=== PATIENT | female | born 1980 | race Caucasian/White ===

== ENCOUNTER 2018-09-15 13:41 | Emergency (ER) | payer OTHER ==
[2018-09-15 13:59] VITALS: BP 129/81; PULSE 104; RESP 16; TEMP 97.3; O2SAT 100
[2018-09-15] MEDS ORDERED: SODIUM CHLORIDE 0.9% 1000ML 1,000 ML IV ONE (14:07)
[2018-09-15 14:23] LABS: BASOPHILS % (AUTO) 1 % (0-3); EOSINOPHILS % (AUTO) 1 % (0-9); HEMATOCRIT 35 % (35-47); HEMOGLOBIN 11.6 gm/dl (12.0-15.5); LYMPHOCYTES % (AUTO) 18.3 % (10-50); MEAN CORPUSCULAR HEMOGLOBIN 28.9 pg (27.0-32.0); MEAN CORPUSCULAR HGB CONC 33.1 gm/dl (32.0-36.0); MEAN CORPUSCULAR VOLUME 87 fL (81-99); MONOCYTES % (AUTO) 6.6 % (0-12); NEUTROPHILS % (AUTO) 73.7 % (37-80)
[2018-09-15 14:36] LABS: ALBUMIN 2.6 gm/dl (3.4-5.0); ALKALINE PHOSPHATASE 65 IU/L (46-116); ALT 15 IU/L (14-63); AST 14 IU/L (15-37); BILIRUBIN,TOTAL 0.2 mg/dl (0.2-1.0); BLOOD UREA NITROGEN 6 mg/dl (7-18); CALCIUM 8.4 mg/dl (8.5-10.1); CARBON DIOXIDE 29.9 mEq/L (21-32); CHLORIDE 103 mMol/L (98-107); CREATININE 0.54 mg/dl (0.60-1.00); GLUCOSE 92 mg/dl (74-106); POTASSIUM 3.7 mMol/L (3.5-5.1); SODIUM 138 mMol/L (136-145); TOTAL PROTEIN 6.7 gm/dl (6.4-8.2)
[2018-09-15] MEDS ORDERED: ACETAMINOPHEN 500 MG 500 MG TAB PO ONE (14:38)
[2018-09-15 14:40] LABS: ALCOHOL < 0.003 gm/dl (0.000-0.08)
[2018-09-15] MEDS ORDERED: ACETAMINOPHEN 500 MG 500 MG TAB ONE (14:43)
[2018-09-15 16:13] LABS: APPEARANCE,URINE Clear; BILIRUBIN,URINE NEGATIVE (NEGATIVE); COLOR,URINE Yellow; GLUCOSE, URINE (UA) NEGATIVE (NEGATIVE); KETONES,URINE NEGATIVE (NEGATIVE); LEUKOCYTE ESTERASE ,URINE TRACE (NEGATIVE); NITRATE,URINE NEGATIVE (NEGATIVE); OCCULT BLOOD,URINE NEGATIVE (NEG-TRACE); PH,URINE 7.5; UROBILINOGEN,URINE 0.2 (0.2-1.0 EU)
[2018-09-15 16:25] LABS: AMPHETAMINES NEGATIVE (NEGATIVE); BACTERIA NEGATIVE (< 1+); BARBITUATES NEGATIVE (NEGATIVE); BENZODIAZEPINES NEGATIVE (NEGATIVE); CANNABINOL(THC) NEGATIVE (NEGATIVE); COCAINE(COC) NEGATIVE (NEGATIVE); CRYSTALS NEGATIVE (0-3 AVE/HPF); EPITHELIAL CELLS 0-1 (SQUAMOUS); METHADONE NEGATIVE (NEGATIVE); METHAMPHETAMINES NEGATIVE (NEGATIVE); OPIATES(OPI) NEGATIVE (NEGATIVE); OXYCODONE(OXY) NEGATIVE (NEGATIVE); PROPOXYPHENE(PPX) NEGATIVE (NEGATIVE); RBC,URINE NEG (0-3AV/HPF); TRICYCLIC ANTIDEPRESSANTS NEGATIVE (NEGATIVE); WBC,URINE NEG (0-5AV/HPF)
== END 2018-09-15 18:37 | disposition short-term general hospital (02) | DRG 897 ==
LOC: ED 13:41
DX: F15.20 Other stimulant dependence, uncomplicated (principal); Z3A.23 23 weeks gestation of pregnancy; F17.210 Nicotine dependence, cigarettes, uncomplicated
CPT/HCPCS: 36415; 80053; 80305; 80307; 81001; 85025; 86901; 87088; 96365; 96366; 99283; 99284

== ENCOUNTER 2018-12-27 08:35 | Observation (INO) | payer OTHER ==
[2018-09-15 13:59] VITALS: O2SAT 100
[2019-01-06] MEDS ORDERED: MEPIVACAINE HCL 1% MPF 30 ML/VIAL SOL INFIL PRN (18:28)
[2019-01-06] MEDS ORDERED: OXYTOCIN 10000 MU/ML SOL IM PRN (18:28)
[2019-01-06] MEDS ORDERED: METHYLERGONOVINE MALEATE 0.2 MG/ML SOL IM PRN (18:28)
[2019-01-06] MEDS ORDERED: LACTATED RINGERS 1,000 ML IV PRN (18:28)
[2019-01-06] MEDS ORDERED: CARBOPROST 250 MCG/ML SOL IM PRN (18:28)
[2019-01-06] MEDS ORDERED: SODIUM CHLORIDE 0.9% FLUSH 10 ML SOL IV PRN (18:28)
[2019-01-06] MEDS ORDERED: FENTANYL 100MCG/2ML SOL IV PRN (18:28)
[2019-01-06] MEDS ORDERED: SODIUM CHLORIDE 0.9% FLUSH 10 ML SOL IV SCH (18:30)
[2019-01-06 18:56] LABS: BASOPHILS % (AUTO) 0 % (0-3); EOSINOPHILS % (AUTO) 1 % (0-9); HEMATOCRIT 38 % (35-47); HEMOGLOBIN 12.5 gm/dl (12.0-15.5); LYMPHOCYTES % (AUTO) 18.4 % (10-50); MEAN CORPUSCULAR HEMOGLOBIN 28.9 pg (27.0-32.0); MEAN CORPUSCULAR HGB CONC 32.6 gm/dl (32.0-36.0); MEAN CORPUSCULAR VOLUME 89 fL (81-99); MONOCYTES % (AUTO) 5.8 % (0-12); NEUTROPHILS % (AUTO) 74.6 % (37-80)
[2019-01-06 19:52] VITALS: BP 126/90; PULSE 106; RESP 18; TEMP 97.8
[2019-01-06 20:13] LABS: APPEARANCE,URINE Clear; BILIRUBIN,URINE NEGATIVE (NEGATIVE); COLOR,URINE Yellow; GLUCOSE, URINE (UA) NEGATIVE (NEGATIVE); KETONES,URINE NEGATIVE (NEGATIVE); LEUKOCYTE ESTERASE ,URINE 1+ (NEGATIVE); NITRATE,URINE NEGATIVE (NEGATIVE); OCCULT BLOOD,URINE NEGATIVE (NEG-TRACE); UROBILINOGEN,URINE 0.2 (0.2-1.0 EU)
[2019-01-06 20:29] LABS: AMPHETAMINES NEGATIVE (NEGATIVE); BACTERIA TRACE (< 1+); BARBITUATES NEGATIVE (NEGATIVE); BENZODIAZEPINES NEGATIVE (NEGATIVE); CANNABINOL(THC) NEGATIVE (NEGATIVE); COCAINE(COC) NEGATIVE (NEGATIVE); CRYSTALS NEGATIVE (0-3 AVE/HPF); METHADONE NEGATIVE (NEGATIVE); METHAMPHETAMINES NEGATIVE (NEGATIVE); OPIATES(OPI) NEGATIVE (NEGATIVE); OXYCODONE(OXY) NEGATIVE (NEGATIVE); PROPOXYPHENE(PPX) NEGATIVE (NEGATIVE); RBC,URINE NEGATIVE (0-3AV/HPF); TRICYCLIC ANTIDEPRESSANTS NEGATIVE (NEGATIVE)
[2019-01-06 20:33] LABS: ABO O; ANTIBODY SCREEN Negative; RH TYPE Positive
[2019-01-10 13:48] LABS: *HEPATITIS B SURG AG Nonreactive (Nonreactive)
[2019-01-11 06:57] LABS: *HIV 1/2 AB/AG COMBO Nonreactive (Nonreactive)
== END 2019-01-06 20:55 | disposition home or self-care (01) | DRG 392 ==
LOC: OB 01-06 18:13
PROVIDERS: ADMIT Family Medicine; ATTEND Family Medicine
DX: R10.9 Unspecified abdominal pain (principal); Z3A.40 40 weeks gestation of pregnancy; F19.90 Other psychoactive substance use, unspecified, uncomplicated; O09.30 Supervision of pregnancy with insufficient antenatal care, unspecified trimester
CPT/HCPCS: 36415; 59025; 80305; 81001; 85025; 86850; 86900; 86901; 87088

== ENCOUNTER 2019-01-09 19:00 | Observation (INO) | payer OTHER ==
[2019-01-09 19:50] VITALS: BP 126/86; PULSE 81; RESP 12; TEMP 98.5; O2SAT 97
== END 2019-01-09 21:30 | disposition home or self-care (01) | DRG 998 ==
LOC: OB 19:00
PROVIDERS: ADMIT Family Medicine; ATTEND Family Medicine
DX: O09.31 Supervision of pregnancy with insufficient antenatal care, first trimester (principal); O47.1 False labor at or after 37 completed weeks of gestation; Z3A.40 40 weeks gestation of pregnancy; F19.90 Other psychoactive substance use, unspecified, uncomplicated

== ENCOUNTER 2019-01-10 00:43 | Inpatient (IN) | payer OTHER ==
[2019-01-10] MEDS ORDERED: ROPIVACAINE HYDROCHLORIDE 5 MG/ML SOL ONE ×2 (01:15→03:04)
[2019-01-10] MEDS ORDERED: OXYTOCIN 10000 MU/ML SOL ONE (01:15)
[2019-01-10] MEDS ORDERED: AMPICILLIN 1 GM PDS ONE (01:24)
[2019-01-10] MEDS ORDERED: MEPIVACAINE HCL 1% MPF 30 ML/VIAL SOL INFIL PRN ×2 (01:34→01:48)
[2019-01-10] MEDS ORDERED: FENTANYL 100MCG/2ML SOL IV PRN ×2 (01:34→01:48)
[2019-01-10] MEDS ORDERED: LACTATED RINGERS 1,000 ML IV PRN ×2 (01:34→01:48)
[2019-01-10] MEDS ORDERED: CARBOPROST 250 MCG/ML SOL IM PRN ×2 (01:34→01:48)
[2019-01-10] MEDS ORDERED: METHYLERGONOVINE MALEATE 0.2 MG/ML SOL IM PRN ×2 (01:34→01:48)
[2019-01-10] MEDS ORDERED: SODIUM CHLORIDE 0.9% 50 ML 25 ML IV PRN (01:34)
[2019-01-10] MEDS ORDERED: OXYTOCIN 10000 MU/ML SOL IM PRN ×2 (01:34→01:48)
[2019-01-10] MEDS ORDERED: AMPICILLIN 1 GM PDS 2 GM in SODIUM CHLORIDE 0.9% 100 ML 100 ML IV SCH (01:45)
[2019-01-10] MEDS ORDERED: SODIUM CHLORIDE 0.9% FLUSH 10 ML SOL IV PRN (01:48)
[2019-01-10] MEDS: SODIUM CHLORIDE 0.9% FLUSH 10 ML SOL IV PRN ×2 (01:57→08:16)
[2019-01-10] MEDS: LACTATED RINGERS 1,000 ML IV SCH ×2 (03:00→03:10)
[2019-01-10] MEDS ORDERED: FENTANYL 250 MCG/ 5ML SOL ONE (03:03)
[2019-01-10] MEDS ORDERED: LIDOCAINE HCL 2% MPF 10 ML SOL ONE (03:05)
[2019-01-10] MEDS ORDERED: LIDOCAINE 1% W/EPI MPF 30 ML SOL ONE (03:13)
[2019-01-10] MEDS ORDERED: NALBUPHINE HCL 20 MG/ML SOL IV PRN (03:18)
[2019-01-10] MEDS ORDERED: EPHEDRINE SULFATE 50 MG/ML SOL IV PRN (03:18)
[2019-01-10] MEDS ORDERED: DIPHENHYDRAMINE 50 MG/ML SOL IV PRN (03:18)
[2019-01-10] MEDS ORDERED: NALOXONE HYDROCHLORIDE 0.4 MG/ML SOL IV PRN (03:18)
[2019-01-10 03:19] LABS: BASOPHILS % (AUTO) 1 % (0-3); EOSINOPHILS % (AUTO) 1 % (0-9); HEMATOCRIT 35 % (35-47); HEMOGLOBIN 11.9 gm/dl (12.0-15.5); LYMPHOCYTES % (AUTO) 19.6 % (10-50); MEAN CORPUSCULAR HEMOGLOBIN 30.5 pg (27.0-32.0); MEAN CORPUSCULAR HGB CONC 34.4 gm/dl (32.0-36.0); MEAN CORPUSCULAR VOLUME 89 fL (81-99); MONOCYTES % (AUTO) 7.8 % (0-12); NEUTROPHILS % (AUTO) 71.1 % (37-80)
[2019-01-10 03:28] LABS: AMPHETAMINES POSITIVE (NEGATIVE); BARBITUATES NEGATIVE (NEGATIVE); BENZODIAZEPINES NEGATIVE (NEGATIVE); CANNABINOL(THC) NEGATIVE (NEGATIVE); COCAINE(COC) NEGATIVE (NEGATIVE); METHAMPHETAMINES NEGATIVE (NEGATIVE); OPIATES(OPI) NEGATIVE (NEGATIVE); OXYCODONE(OXY) NEGATIVE (NEGATIVE); PROPOXYPHENE(PPX) NEGATIVE (NEGATIVE)
[2019-01-10] MEDS ORDERED: LACTATED RINGERS 1,000 ML IV SCH (03:30)
[2019-01-10] MEDS ORDERED: AMPICILLIN 1 GM PDS 1 GM in SODIUM CHLORIDE 0.9% 100 ML 100 ML IV SCH (05:34)
[2019-01-10] MEDS ORDERED: WITCH HAZEL 1 EA PAD TOP PRN (07:14)
[2019-01-10] MEDS ORDERED: TEMAZEPAM 15MG 15 MG CAP PO PRN (07:14)
[2019-01-10] MEDS ORDERED: BISACODYL 10 MG SUP PR PRN (07:14)
[2019-01-10] MEDS ORDERED: METHYLERGONOVINE MALEATE 0.2 MG TAB PO PRN (07:14)
[2019-01-10] MEDS ORDERED: APAP/HYDROCODONE 1 EACH TABLET PO PRN (07:14)
[2019-01-10] MEDS ORDERED: FLEET ENEMA PR PRN (07:14)
[2019-01-10] MEDS ORDERED: BENZOCAINE/MENTHOL 1 SPR TOP PRN (07:14)
[2019-01-10] MEDS: SODIUM CHLORIDE 0.9% FLUSH 10 ML SOL IV SCH ×5 (07:21→20:59)
[2019-01-10] MEDS ORDERED: DOCUSATE SODIUM 100 MG SGL PO SCH (09:00)
[2019-01-10] MEDS: IBUPROFEN 600 MG TAB PO PRN (18:49)
[2019-01-11] MEDS: SODIUM CHLORIDE 0.9% FLUSH 10 ML SOL IV SCH ×3 (04:48→20:34)
[2019-01-11] MEDS: IBUPROFEN 600 MG TAB PO PRN (19:28)
[2019-01-11 20:39] VITALS: RESP 18
[2019-01-12 03:27] VITALS: BP 114/74; PULSE 61; TEMP 98.1; O2SAT 97
[2019-01-12] MEDS: SODIUM CHLORIDE 0.9% FLUSH 10 ML SOL IV SCH (13:41)
== END 2019-01-12 09:25 | disposition home or self-care (01) | DRG 807 ==
LOC: OB 00:43 → OBSVTOIN 00:43 → OB 00:43
PROVIDERS: ADMIT Family Medicine; ATTEND Family Medicine
PROC: 10E0XZZ Delivery of Products of Conception, External Approach (ICD-10-PCS; principal; 2019-01-10)
PROC: 6A550ZT Pheresis of Cord Blood Stem Cells, Single (ICD-10-PCS; 2019-01-10)
DX: O80 Encounter for full-term uncomplicated delivery (principal); Z37.0 Single live birth; Z3A.39 39 weeks gestation of pregnancy; F15.90 Other stimulant use, unspecified, uncomplicated; O09.30 Supervision of pregnancy with insufficient antenatal care, unspecified trimester
CPT/HCPCS: 36415; 59025; 80305; 85018; 85025; J0290; J1200; J2590; J2795; J3010; A9270-GY